=== PATIENT | female | born 1950 | race Caucasian/White ===

== ENCOUNTER 2016-10-20 11:33 | Outpatient (CLI) | payer MEDICARE, OTHER ==
[2016-10-20 11:56] LABS: Prothrombin Time 27.6 SEC (12.0-14.7)
== END 2016-10-20 11:34 | disposition home or self-care (01) ==
LOC: BURLAB 11:33
PROVIDERS: ATTEND Internal Medicine Cardiovascular Disease
DX: I48.1 Persistent atrial fibrillation (principal)
CPT/HCPCS: 36415; 85610

== ENCOUNTER 2016-12-09 16:10 | Outpatient (CLI) | payer OTHER ==
[2016-12-09 16:37] LABS: Prothrombin Time 29.8 SEC (12.0-14.7)
== END 2016-12-09 16:11 | disposition home or self-care (01) ==
LOC: BURLAB 16:10
PROVIDERS: ATTEND Internal Medicine Cardiovascular Disease
DX: I48.1 Persistent atrial fibrillation (principal)
CPT/HCPCS: 36415; 85610

== ENCOUNTER 2016-12-17 15:27 | Inpatient (IN) | payer OTHER, MEDICARE ==
[~2016-12-17 15:27] MED LIST: Iopamidol 370 76% 100 ML VIAL ONE
[2016-12-17] MEDS ORDERED: Loperamide HCl 2 MG CAP PO PRN (15:36)
[2016-12-17] MEDS ORDERED: Milk Of Magnesia 30 ML UDCUP PO PRN (15:36)
[2016-12-17] MEDS ORDERED: HYDROcodone/Acetaminophen 5/325 mg Tablet PO PRN (15:36)
[2016-12-17] MEDS ORDERED: Zolpidem Tartrate 5 MG TAB PO PRN (15:36)
[2016-12-17] MEDS ORDERED: Albuterol Sulfate 2.5 mg/3 ml Neb NEB PRN (15:36)
[2016-12-17] MEDS ORDERED: Acetaminophen 325 MG TAB PO PRN (15:36)
[2016-12-17] MEDS ORDERED: HYDROcodone/Acetaminophen 10/325 mg Tablet PO PRN (15:36)
[2016-12-17] MEDS ORDERED: Ondansetron ODT 4 MG TAB PO PRN (15:36)
[2016-12-17] MEDS ORDERED: Bisacodyl 10 MG SUPP PR PRN (15:36)
[2016-12-17] MEDS ORDERED: Guaifenesin DM 100-10/5 ML UDCUP PO PRN (15:36)
[2016-12-17] MEDS ORDERED: cefTRIAXone\\ROCEPHIN 2 GM in Sodium Chloride 0.9% 100 ML IVPB SCH (15:45)
[2016-12-17 16:19] VITALS: BMI 32.5
[2016-12-17 16:27] LABS: ALT (SGPT) 31 U/L (0-55); AST (SGOT) 32 U/L (5-34); Albumin 3.8 g/dL (3.4-4.8); Alkaline Phosphatase 110 U/L (40-150); Anion Gap 14 mmol/L (10-20); BUN (Urea Nitrogen) 12 mg/dL (9.8-20.1); Bilirubin, Total 0.2 mg/dL (0.2-1.2); Calc. Creatinine Clearance 82 mL/min (70-130); Calcium 9.5 mg/dL (7.8-10.44); Carbon Dioxide 30 mmol/L (23-31); Chloride 103 mmol/L (98-107); Estimated GFR-MDRD 52; Globulin 3.3 g/dL (2.4-3.5); Glucose 93 mg/dL (80-115); Potassium 3.7 mmol/L (3.5-5.1); Protein, Total 7.1 g/dL (5.8-8.1); Sodium 143 mmol/L (136-145)
--- NOTE | 2016-12-17 16:32 | RAD ---
CHEST TWO VIEWS: History: 66-year-old female with COPD exacerbation. Comparison: 05-12-16 FINDINGS: Heart size is within normal limits. The mid and upper lung zones are clear. On the lateral view th ere is some increased linear markings in the lung base region. It is difficult to be absolutely cer tain whether these are in the right or left base or both. They do appear somewhat more prominent th an on 05-12-16. No confluent pneumonia. IMPRESSION: Minimal linear stranding in the lung bases, best seen on the lateral view posteriorly and inferiorly , possibly some linear and parenchymal changes in either the right or left lower lobes or both. The se appear more prominent than on the 05-12-16 study and could suggest some mild pneumonitis or subsegm ental atelectasis. Consider short term follow up for clearing or stability. POS: [facility]
[2016-12-17 16:52] LABS: Hemoglobin 12.8 g/dL (12.0-16.0); Mean Corpuscular Hemoglobin 30.1 pg (27.0-31.0); Mean Corpuscular Volume 94.2 fl (81.0-99.0); Mean Platelet Volume 7.9 fL (7.4-10.4); Platelet Count 235 thou/uL (130-400); RBC Distribution Width 14.3 % (11.5-14.5); Red Blood Cell (RBC) Count 4.27 mill/uL (4.20-5.40); White Blood Cell (WBC) Count 45.2 thou/uL (4.8-10.8)
[2016-12-17] MEDS ORDERED: FLU VACC TS2016-17(65YR +) 0.5 ML SYRINGE IM ONE (17:00)
[2016-12-17 17:14] LABS: Eosinophils 83 % (0-10); Lymphocytes 4 % (21-51); MDiff Complete? YES; Monocytes 1 % (0-10); Neutrophil 11 % (42-75); PLT Morphology Comment Appears Adequate; RBC Morphology Normal
[2016-12-17 17:30] LABS: Digoxin 1.19 ng/mL (0.8-2.0)
[2016-12-17] MEDS ORDERED: Azithromycin 500 MG in Sodium Chloride 0.9% 250 ML 250 ML IVPB SCH (18:00)
[2016-12-17] MEDS ORDERED: Sodium Chloride 0.9% 10 ML ONE (18:25)
--- NOTE | 2016-12-17 19:31 | CT ---
CT CHEST WITH CONTRAST 12/17/16 HISTORY: Pneumonia. COMPARISON: Chest two view 12/17/16. FINDINGS: The heart size is enlarged. No pericardial effusions. Pulmonary trunk measures 32 mm, abnormally enl arged. Ascending aorta measures up 35 mm. There are a few small right paratracheal and subcarinal AP window lymph nodes without overt enlargem ent. There is atherosclerotic plaque with some narrowing of the celiac trunk and superior mesenteric belkys peg. There is superficial soft tissue edema concerning for anasarca, mild. There is a 3 mm right upper lobe pulmonary node. There is some atelectasis in the right middle lobe. There is also atelectasis in the left lower lobe. These areas are linear and not suspicious for con solidation. No pneumothorax or effusion. There are a few subpleural nodules in the right upper lobe, all measuri ng less than 4 mm. There is a cyst in the superior pole left kidney, unchanged from comparison examination. These are similar to the comparison, January 2016 CT examination. IMPRESSION: 1. Dilated pulmonary trunk suggestive of pulmonary arterial hypertension. 2. Mild soft tissue edema is concerning for anasarca. 3. Mild cardiomegaly. 4. Few shotty appearing lymph nodes, likely reactive. 5. Small sliding hiatal hernia. POS: [facility]
[2016-12-17 19:47] LABS: INR-International Normal Ratio 1.8; Prothrombin Time 21.2 SEC (12.0-14.7)
[2016-12-17 20:13] LABS: Bilirubin Negative (Negative); Blood, Urine Negative (Negative); Clarity Clear (Clear); Glucose, Urine (Dipstick) Negative (Negative); Leukocyte Negative (Negative); Nitrite Negative (Negative); Protein, Urine (Dipstick) Negative (Neg-Trace); Specific Gravity, Urine 1.025 (1.005-1.030); Urobilinogen 0.2 mg/dL (0.2-1.0)
[2016-12-17 20:24] LABS: Bacteria/HPF None Seen HPF (None Seen); RBC/HPF None Seen HPF (0-3); Squamous Epithelial 0-3 HPF (0-3); WBC/HPF None Seen HPF (0-3)
[2016-12-17] MEDS ORDERED: Warfarin Sodium 7.5 MG TAB PO SCH (20:30)
[2016-12-17] MEDS: Arformoterol 15 MCG/2 ML NEB NEB SCH (21:45)
[2016-12-18] MEDS: Arformoterol 15 MCG/2 ML NEB NEB SCH (06:43)
[2016-12-18 06:51] LABS: INR-International Normal Ratio 1.8; Prothrombin Time 21.2 SEC (12.0-14.7)
[2016-12-18 06:59] LABS: Anion Gap 12 mmol/L (10-20); BUN (Urea Nitrogen) 14 mg/dL (9.8-20.1); Calc. Creatinine Clearance 98 mL/min (70-130); Calcium 9.1 mg/dL (7.8-10.44); Carbon Dioxide 27 mmol/L (23-31); Chloride 106 mmol/L (98-107); Estimated GFR-MDRD 63; Glucose 165 mg/dL (80-115); Potassium 4.1 mmol/L (3.5-5.1); Sodium 141 mmol/L (136-145)
[2016-12-18 07:43] LABS: Hemoglobin 13.2 g/dL (12.0-16.0); Mean Corpuscular HGB CONC 32.9 g/dL (32.0-36.0); Mean Corpuscular Hemoglobin 30.5 pg (27.0-31.0); Mean Corpuscular Volume 92.8 fl (81.0-99.0); Mean Platelet Volume 7.8 fL (7.4-10.4); Platelet Count 211 thou/uL (130-400); RBC Distribution Width 13.5 % (11.5-14.5); Red Blood Cell (RBC) Count 4.31 mill/uL (4.20-5.40)
[2016-12-18 07:44] VITALS: BP 143/68; TEMP 97.8
[2016-12-18 07:57] LABS: Band 1 % (5-11); Eosinophils 50 % (0-10); Lymphocytes 15 % (21-51); MDiff Complete? YES; Neutrophil 34 % (42-75)
[2016-12-18] MEDS ORDERED: FLUoxetine HCl 10 MG CAP PO SCH (09:00)
[2016-12-18] MEDS ORDERED: Calcium Carbonate + Vit D 1 TAB PO SCH (09:00)
[2016-12-18] MEDS ORDERED: Digoxin 0.25 MG TAB PO SCH (09:00)
[2016-12-18] MEDS ORDERED: Digoxin 0.125 MG TAB PO SCH (09:00)
[2016-12-18] MEDS ORDERED: Fluticasone Propionate Nasal Spray 16 gm Bottle NASAL SCH (09:00)
[2016-12-18] MEDS ORDERED: Furosemide 40 MG TAB PO SCH (09:00)
[2016-12-18] MEDS ORDERED: Warfarin Sodium 7.5 MG TAB PO SCH (17:00)
--- NOTE | 2016-12-19 00:36 | DIS ---
DATE OF ADMISSION: 12/17/2016 DATE OF TRANSFER: 12/18/2016 ADMISSION DIAGNOSES: 1. Chronic obstructive pulmonary disease exacerbation. 2. Community-acquired pneumonia. 3. Obstructive sleep apnea. 4. History of endocardial ablation for chronic atrial fibrillation. DISCHARGE DIAGNOSES: 1. Chronic obstructive pulmonary disease exacerbation. 2. Pneumonia ruled out with CT scan. 3. Eosinophilic leukocytosis, suspicion of eosinophilic pneumonia. 4. Obstructive sleep apnea. 5. History of endocardial ablation for chronic atrial fibrillation. ATTENDING PHYSICIAN: Anne Denton DO. HISTORY AND PHYSICAL EXAMINATION: Please see dictated report from the date of admission. PROCEDURES: 1. CBC on the date of admission with white count of 45,200 with 83% eosinophils, 11% neutrophils, 4 % lymphocytes, 1% monocytes, 1% basophils, normal H\T\H, and platelets. CBC on the date of transfer after treatment with IV antibiotics and steroids, white count 27,000 with 50% eosinophils, 15% lymp hocytes, 34% neutrophils, normal H\T\H, and platelets. 2. Blood culture x2, urine culture x1, sputum culture x1 pending. 3. PT/INR date of admission 21.2 and 1.8. Subsequently today 21.2 and INR 1.8. 4. Chemistry profile from the date of admission completely normal. 5. Chemistry profile on the date of transfer with elevated glucose of 165, otherwise unremarkable. 6. Urinalysis on the date of admission significant for 15 ketones, otherwise negative. 7. Digoxin level date of admission 1.19. 8. Chest x-ray from the date of admission shows minimal linear stranding in the lung bases, best se en on the lateral view posteriorly and inferiorly, possibly some linear and parenchymal changes in e ither the right or left lower lobes or both. Appear more prominent on the 05/2016 study and could s uggest some mild pneumonitis or subsegmental atelectasis. 9. CT scan of the chest on the date of admission shows dilated pulmonary trunk suggestive of pulmon lilliana arterial hypertension. Mild soft tissue edema concerning for anasarca. Mild cardiomegaly. Few shotty appearing lymph nodes, likely reactive. Small sliding hiatal hernia. HOSPITAL COURSE: Patient is a 66-year-old female with a known history of obstructive slee p apnea on CPAP and compliant, who has had recurrent bouts of chronic sinusitis and COPD with wheezi ng. She is followed by Dr. Albert with ENT, status post endoscopic sinus surgery and with Dr. Noble brown of Pulmonology. Approximately 6 weeks prior to her admission here, patient was treated in the tpatient setting for sinusitis with cefdinir 300 mg p.o. b.i.d. x10 days. She was also treated with a 2-week taper of prednisone. Patient reports that upon completion, the patient's symptoms never r eally cleared and worsened to the point that she was having significant dyspnea on exertion yesterda y with O2 saturation down to 84%. She was placed on O2 and this probably corrected to 92%. Her aer ation and wheezing diminished with the administration of nebulizer treatments. She was admitted wit h suspected COPD exacerbation and covered with Rocephin and Zithromax due to the findings on the [facility] x-ray. She was given IV steroids for treatment of COPD exacerbation. After her CBC was signific ant for eosinophilic leukocytosis, I spoke with Hematology, Dr. Mckenna Hidalgo, who recommended a CT s can of the chest to look for nonbacterial etiology of her symptoms. CT of the chest was performed, which showed some atelectasis, but no findings suggestive of consolidation. I later reviewed this c hest CT with patient's pulmonary physician, Dr. Richter, who viewed the chest CT and felt that there were some areas within the chest that might be amenable to bronchoscopy with suspicion of eosinophi lic pneumonia. Dr. Richter recommended taking the patient off steroids in order to have a higher li kelihood of a diagnostic bronchoscopy. This will necessitate a transfer as the steroids are helping to improve the patient's leukocytosis and her symptoms. I have a call into the transfer center's h ospitalist group to accept this patient and transfer with Dr. Richetr to consult for possible bronch oscopy. Over the interval, the patient has been taken off IV steroids and IV antibiotics as current ly, there is no known bacterial infectious process. If the patient does in fact have an eosinophili c pneumonia, the plan would be to treat her with high dose steroids. Patient is stable and willing to transfer. Currently, her O2 saturations are 92% on 2 liters per minute, other vital signs are st able. Her lungs showed diminished air entry throughout with rare wheeze in all lung [place]. She is under no respiratory distress and is only mildly tachypneic. Transferred to higher level of care, [facility]ist Group with Dr Traci Richter consulting for Pulmonology. CONDITION: Stable. MEDICATIONS: We will continue the patient on the medication she was here, both chronically resumed from home and p.r.n. for symptoms. 1. Acetaminophen 650 mg p.o. q.4 hours p.r.n. mild pain. 2. Hydrocodone/acetaminophen 5/325 one p.o. q.4 hours p.r.n. moderate pain. 3. Hydrocodone/acetaminophen 10/325 one p.o. q.4 hours p.r.n. severe pain. 4. Albuterol nebulizer 2.5 mg nebulize q.2 hours p.r.n. shortness of breath. 5. DuoNeb 3 mL nebulizer q.6 hours 6. Brovana 15 mcg nebulize b.i.d. 7. Dulcolax 10 mg per rectum q.24 hours p.r.n. constipation. 8. Caltrate plus D 1 p.o. daily. 9. Digoxin 0.125 mg p.o. q.a.m. 10. Cardizem-CD 120 mg p.o. daily. 11. Prozac 10 mg p.o. daily. 12. Flonase 2 sprays in each nostril daily. 13. Lasix 40 mg p.o. daily. 14. Robitussin-DM 15 mL p.o. q.4 hours p.r.n. cough. 15. Imodium 2 mg p.o. p.r.n. constipation. 16. Milk of magnesia 30 mL p.o. daily p.r.n. 17. Zofran 4 mg p.o. q.6 hours p.r.n. nausea. 18. Protonix 40 mg p.o. daily. 19. Coumadin 7.5 mg p.o. daily. FOLLOWUP: With Dr. Anne Denton within 7 days of hospital discharge from [facility] and with her kidney puller as scheduled.
== END 2016-12-18 15:45 | disposition short-term general hospital (02) | DRG 191 ==
LOC: BURMED 15:27
PROVIDERS: ADMIT Family Medicine; ATTEND Family Medicine
DX: J44.1 Chronic obstructive pulmonary disease with (acute) exacerbation (principal); J82 Pulmonary eosinophilia, not elsewhere classified; I27.81 Cor pulmonale (chronic); I48.2 Chronic atrial fibrillation; J98.11 Atelectasis; G47.33 Obstructive sleep apnea (adult) (pediatric); J32.8 Other chronic sinusitis; K21.9 Gastro-esophageal reflux disease without esophagitis; F39 Unspecified mood [affective] disorder; J30.89 Other allergic rhinitis; J30.9 Allergic rhinitis, unspecified; Z79.01 Long term (current) use of anticoagulants; Z88.1 Allergy status to other antibiotic agents
CPT/HCPCS: 36415; 71020; 71260; 80048; 80053; 80162; 81001; 83605; 83880; 85025; 85060; 85610; 87040; 87086; A4216; J0456; J0696; J2920; J7050; J7620

== ENCOUNTER 2016-12-25 12:16 | Outpatient (CLI) | payer OTHER ==
[2016-12-25 12:45] LABS: Prothrombin Time 13.9 SEC (12.0-14.7)
[2016-12-25 13:07] LABS: Eosinophils 45 % (0-10); Lymphocytes 28 % (21-51); MDiff Complete? YES; Mean Corpuscular HGB CONC 31.8 g/dL (32.0-36.0); Mean Corpuscular Hemoglobin 29.5 pg (27.0-31.0); Mean Corpuscular Volume 92.6 fl (81.0-99.0); Mean Platelet Volume 8.7 fL (7.4-10.4); Monocytes 11 % (0-10); Neutrophil 16 % (42-75); Platelet Count 226 thou/uL (130-400); RBC Distribution Width 13.8 % (11.5-14.5); Red Blood Cell (RBC) Count 4.39 mill/uL (4.20-5.40); White Blood Cell (WBC) Count 8.9 thou/uL (4.8-10.8)
== END 2016-12-25 12:17 | disposition home or self-care (01) ==
LOC: BURLAB 12:16
PROVIDERS: ATTEND Internal Medicine
DX: J44.9 Chronic obstructive pulmonary disease, unspecified (principal); J96.01 Acute respiratory failure with hypoxia; D72.1 Eosinophilia
CPT/HCPCS: 36415; 85025; 85610

== ENCOUNTER 2017-01-12 09:46 | Outpatient (CLI) | payer OTHER ==
[2017-01-12 11:02] LABS: #Basophils 0.1 thou/uL (0.0-0.2); #Lymphocytes 1.2 thou/uL (1.20-3.40); #Monocytes 0.4 thou/uL (0.11-0.59); #Neutrophils 8.6 thou/uL (1.40-6.50); %Basophils 0.6 % (0.0-1.0); %Eosinophils 0.3 % (0.0-10.0); %Lymphocytes 11.6 % (21.0-51.0); %Monocytes 3.9 % (0.0-10.0); %Neutrophils 83.6 % (42.0-75.0); Hemoglobin 13.7 g/dL (12.0-16.0); Mean Corpuscular HGB CONC 32.2 g/dL (32.0-36.0); Mean Corpuscular Hemoglobin 30.5 pg (27.0-31.0); Mean Corpuscular Volume 94.7 fl (81.0-99.0); Platelet Count 285 thou/uL (130-400); RBC Distribution Width 13.6 % (11.5-14.5); White Blood Cell (WBC) Count 10.3 thou/uL (4.8-10.8)
[2017-01-12 11:23] LABS: Digoxin 1.11 ng/mL (0.8-2.0)
[2017-01-12 11:24] LABS: Anion Gap 16 mmol/L (10-20); BUN (Urea Nitrogen) 19 mg/dL (9.8-20.1); Calc. Creatinine Clearance 0 mL/min (70-130); Calcium 9.5 mg/dL (7.8-10.44); Carbon Dioxide 28 mmol/L (23-31); Chloride 101 mmol/L (98-107); Estimated GFR-MDRD 54; Glucose 120 mg/dL (80-115); Potassium 3.9 mmol/L (3.5-5.1); Sodium 141 mmol/L (136-145)
== END 2017-01-12 09:47 | disposition home or self-care (01) ==
LOC: HPCALD 09:46
PROVIDERS: ATTEND Family Medicine
DX: Z51.81 Encounter for therapeutic drug level monitoring (principal); D72.1 Eosinophilia; I48.91 Unspecified atrial fibrillation; Z79.899 Other long term (current) drug therapy
CPT/HCPCS: 36415; 80048; 80162; 85025

== ENCOUNTER 2017-02-09 11:01 | Outpatient (CLI) | payer OTHER ==
[2017-02-09 11:58] LABS: #Eosinphils 0.1 thou/uL (0.0-0.7); #Lymphocytes 0.7 thou/uL (1.20-3.40); #Monocytes 0.3 thou/uL (0.11-0.59); %Basophils 0.5 % (0.0-1.0); %Eosinophils 0.5 % (0.0-10.0); %Monocytes 3.2 % (0.0-10.0); %Neutrophils 87.8 % (42.0-75.0); Hemoglobin 13.4 g/dL (12.0-16.0); Mean Corpuscular Hemoglobin 30.5 pg (27.0-31.0); Mean Corpuscular Volume 92.6 fl (81.0-99.0); Mean Platelet Volume 8.6 fL (7.4-10.4); Platelet Count 232 thou/uL (130-400); RBC Distribution Width 14.1 % (11.5-14.5); Red Blood Cell (RBC) Count 4.38 mill/uL (4.20-5.40); White Blood Cell (WBC) Count 9.1 thou/uL (4.8-10.8)
== END 2017-02-09 11:02 ==
LOC: HPCALD 11:01
PROVIDERS: ATTEND Family Medicine
DX: D72.1 Eosinophilia (principal)
CPT/HCPCS: 36415; 85025

== ENCOUNTER 2017-02-27 11:46 | Outpatient (CLI) | payer OTHER ==
[2017-02-27 12:12] LABS: Prothrombin Time 43.9 SEC (12.0-14.7)
[2017-02-27 12:14] LABS: INR-International Normal Ratio 4.3
== END 2017-02-27 11:47 | disposition home or self-care (01) ==
LOC: BURLAB 11:46
PROVIDERS: ATTEND Internal Medicine Cardiovascular Disease
DX: I48.1 Persistent atrial fibrillation (principal)
CPT/HCPCS: 36415; 85610

== ENCOUNTER 2017-03-06 13:58 | Outpatient (CLI) | payer OTHER ==
[2017-03-06 14:41] LABS: Digoxin 1.02 ng/mL (0.8-2.0)
== END 2017-03-06 13:59 | disposition home or self-care (01) ==
LOC: BURLAB 13:58
PROVIDERS: ATTEND Family Medicine
DX: I48.91 Unspecified atrial fibrillation (principal)
CPT/HCPCS: 36415; 80162

== ENCOUNTER 2017-03-13 12:42 | Outpatient (CLI) | payer OTHER ==
[2017-03-13 12:55] LABS: INR-International Normal Ratio 0.9; Prothrombin Time 12.5 SEC (12.0-14.7)
== END 2017-03-13 12:43 | disposition home or self-care (01) ==
LOC: BURLAB 12:42
PROVIDERS: ATTEND Internal Medicine Cardiovascular Disease
DX: I48.1 Persistent atrial fibrillation (principal)
CPT/HCPCS: 36415; 85610

== ENCOUNTER 2017-03-27 10:32 | Outpatient (CLI) | payer OTHER ==
[2017-03-27 10:49] LABS: INR-International Normal Ratio 1.5; Prothrombin Time 18.6 SEC (12.0-14.7)
== END 2017-03-27 10:33 | disposition home or self-care (01) ==
LOC: BURLAB 10:32
PROVIDERS: ATTEND Internal Medicine Cardiovascular Disease
DX: I48.0 Paroxysmal atrial fibrillation (principal)
CPT/HCPCS: 36415; 85610

== ENCOUNTER 2017-04-06 10:28 | Outpatient (CLI) | payer OTHER ==
[2017-04-06 10:45] LABS: INR-International Normal Ratio 1.4; Prothrombin Time 17.6 SEC (12.0-14.7)
== END 2017-04-06 10:29 | disposition home or self-care (01) ==
LOC: BURLAB 10:28
PROVIDERS: ATTEND Internal Medicine Cardiovascular Disease
DX: I48.0 Paroxysmal atrial fibrillation (principal)
CPT/HCPCS: 36415; 85610

== ENCOUNTER 2017-04-06 11:04 | Emergency (ER) | payer OTHER ==
[2017-04-06] MEDS ORDERED: Enoxaparin Sodium 100 MG/ML SYRINGE ONE (11:43)
[2017-04-06 11:53] LABS: #Basophils 0.1 thou/uL (0.0-0.2); #Lymphocytes 0.7 thou/uL (1.20-3.40); #Monocytes 0.2 thou/uL (0.11-0.59); #Neutrophils 10.9 thou/uL (1.40-6.50); %Basophils 0.7 % (0.0-1.0); %Eosinophils 0.1 % (0.0-10.0); %Lymphocytes 6.2 % (21.0-51.0); %Monocytes 1.9 % (0.0-10.0); %Neutrophils 91.1 % (42.0-75.0); Hemoglobin 13.3 g/dL (12.0-16.0); Mean Corpuscular HGB CONC 32.3 g/dL (32.0-36.0); Mean Corpuscular Hemoglobin 30.1 pg (27.0-31.0); Mean Corpuscular Volume 93.1 fl (81.0-99.0); Mean Platelet Volume 8.3 fL (7.4-10.4); Platelet Count 264 thou/uL (130-400); RBC Distribution Width 14.3 % (11.5-14.5); Red Blood Cell (RBC) Count 4.43 mill/uL (4.20-5.40); White Blood Cell (WBC) Count 11.9 thou/uL (4.8-10.8)
[2017-04-06 11:58] LABS: INR-International Normal Ratio 1.5; Prothrombin Time 18.2 SEC (12.0-14.7)
[2017-04-06 11:59] LABS: PTT 28.7 SEC (22.9-36.1)
[2017-04-06 12:04] LABS: ALT (SGPT) 26 U/L (8-55); AST (SGOT) 21 U/L (5-34); Alkaline Phosphatase 80 U/L (40-150); Anion Gap 16 mmol/L (10-20); BUN (Urea Nitrogen) 19 mg/dL (9.8-20.1); Bilirubin, Total 0.4 mg/dL (0.2-1.2); Calc. Creatinine Clearance 0 mL/min (70-130); Calcium 9.4 mg/dL (7.8-10.44); Carbon Dioxide 26 mmol/L (23-31); Chloride 102 mmol/L (98-107); Digoxin Less than 0.15 ng/mL (0.8-2.0); Estimated GFR-MDRD 49; Globulin 2.6 g/dL (2.4-3.5); Glucose 169 mg/dL (80-115); Potassium 4.1 mmol/L (3.5-5.1); Protein, Total 6.6 g/dL (6.0-8.3); Sodium 140 mmol/L (136-145)
[2017-04-06 12:08] LABS: CKMB 1.4 ng/mL (0-6.6); Troponin I 0.018 ng/mL (< 0.028)
--- NOTE | 2017-04-06 23:35 | RAD ---
PORTABLE CHEST 04/06/17 An AP portable film at 1152 is compared with a 12/17/16 study. Minimal cardiomegaly seems no different than before. There is no congestive change or pleural effusi on. While part of the haziness over the lung bases is due to overlap from the patient's breast tissu e, some of it is a little more streaky and looks similar to the prior study. I suspect that it is ba silar scarring more so than any acute infiltrate. The upper lobes are clear. IMPRESSION: 1. Cardiomegaly without congestive findings. 2. Minimal basilar streakiness which may be due to basilar scarring. POS: HOME
== END 2017-04-06 12:56 | disposition short-term general hospital (02) ==
LOC: BURERS 11:04
DX: I48.91 Unspecified atrial fibrillation (principal); J44.9 Chronic obstructive pulmonary disease, unspecified; Z79.01 Long term (current) use of anticoagulants; Z79.899 Other long term (current) drug therapy; Z87.891 Personal history of nicotine dependence
CPT/HCPCS: 71010; 80053; 80162; 82553; 83880; 84484; 85025; 85730; 93005; 94760; 96365; 96372; 96376; J1650; J3490

== ENCOUNTER 2017-04-13 09:20 | Outpatient (CLI) | payer OTHER ==
[2017-04-13 09:49] LABS: INR-International Normal Ratio 1.6; Prothrombin Time 19.8 SEC (12.0-14.7)
== END 2017-04-13 09:21 | disposition home or self-care (01) ==
LOC: BURLAB 09:20
PROVIDERS: ATTEND Internal Medicine Cardiovascular Disease
DX: I48.0 Paroxysmal atrial fibrillation (principal)
CPT/HCPCS: 36415; 85610

== ENCOUNTER 2017-04-22 15:27 | Outpatient (CLI) | payer OTHER | END 2017-04-22 15:28 | disposition home or self-care (01) | LOC: BURLAB 15:27 | PROVIDERS: ATTEND Internal Medicine Cardiovascular Disease | DX: I48.0 Paroxysmal atrial fibrillation (principal) | CPT/HCPCS: 36415; 85610 ==

== ENCOUNTER 2017-05-07 15:41 | Outpatient (CLI) | payer OTHER ==
[2017-05-07 15:59] LABS: INR-International Normal Ratio 2.3
== END 2017-05-07 15:42 | disposition home or self-care (01) ==
LOC: BURLAB 15:41
PROVIDERS: ATTEND Internal Medicine Cardiovascular Disease
DX: I48.0 Paroxysmal atrial fibrillation (principal)
CPT/HCPCS: 36415; 85610

== ENCOUNTER 2017-05-26 09:42 | Outpatient (CLI) | payer OTHER ==
[2017-05-26 10:29] LABS: INR-International Normal Ratio 2.1; Prothrombin Time 24.6 SEC (12.0-14.7)
== END 2017-05-26 09:43 | disposition home or self-care (01) ==
LOC: BURLAB 09:42
PROVIDERS: ATTEND Internal Medicine Cardiovascular Disease
DX: I48.0 Paroxysmal atrial fibrillation (principal)
CPT/HCPCS: 36415; 85610

== ENCOUNTER 2017-05-27 15:55 | Outpatient (CLI) | payer OTHER ==
[2017-05-27 16:47] LABS: Anion Gap 12 mmol/L (10-20); BUN (Urea Nitrogen) 14 mg/dL (9.8-20.1); Calc. Creatinine Clearance 0 mL/min (70-130); Carbon Dioxide 29 mmol/L (23-31); Chloride 103 mmol/L (98-107); Estimated GFR-MDRD 58; Glucose 99 mg/dL (80-115); Magnesium 2.2 mg/dL (1.6-2.6); Potassium 3.4 mmol/L (3.5-5.1); Sodium 141 mmol/L (136-145)
[2017-05-27 17:27] LABS: #Basophils 0.1 thou/uL (0.0-0.2); #Eosinphils 0.2 thou/uL (0.0-0.7); #Lymphocytes 1.9 thou/uL (1.20-3.40); #Monocytes 0.7 thou/uL (0.11-0.59); #Neutrophils 6.1 thou/uL (1.40-6.50); %Basophils 1.1 % (0.0-1.0); %Eosinophils 2.5 % (0.0-10.0); %Lymphocytes 21.3 % (21.0-51.0); %Monocytes 7.6 % (0.0-10.0); %Neutrophils 67.5 % (42.0-75.0); Hemoglobin 12.1 g/dL (12.0-16.0); Mean Corpuscular HGB CONC 32.1 g/dL (32.0-36.0); Mean Corpuscular Hemoglobin 30.9 pg (27.0-31.0); Mean Corpuscular Volume 96.2 fl (81.0-99.0); Mean Platelet Volume 8.5 fL (7.4-10.4); Platelet Count 246 thou/uL (130-400); RBC Distribution Width 14.3 % (11.5-14.5); Red Blood Cell (RBC) Count 3.92 mill/uL (4.20-5.40); White Blood Cell (WBC) Count 9.1 thou/uL (4.8-10.8)
== END 2017-05-27 15:56 | disposition home or self-care (01) ==
LOC: BURLAB 15:55
PROVIDERS: ATTEND Internal Medicine
DX: J45.909 Unspecified asthma, uncomplicated (principal); D72.1 Eosinophilia
CPT/HCPCS: 80048; 82785; 83735; 85025; 88184

== ENCOUNTER 2017-06-23 11:34 | Outpatient (CLI) | payer OTHER ==
[2017-06-23 12:29] LABS: INR-International Normal Ratio 1.2; Prothrombin Time 15.5 SEC (12.0-14.7)
== END 2017-06-23 11:35 | disposition home or self-care (01) ==
LOC: BURLAB 11:34
PROVIDERS: ATTEND Internal Medicine Cardiovascular Disease
DX: I48.0 Paroxysmal atrial fibrillation (principal)
CPT/HCPCS: 36415; 85610

== ENCOUNTER 2018-07-19 12:15 | Emergency (ER) | payer MEDICARE, BC | END 2018-07-19 12:37 | disposition home or self-care (01) | LOC: BURERS 12:15 | DX: S01.01XA Laceration without foreign body of scalp, initial encounter (principal); I48.91 Unspecified atrial fibrillation; J45.909 Unspecified asthma, uncomplicated; Z87.891 Personal history of nicotine dependence; Z79.899 Other long term (current) drug therapy; Z79.82 Long term (current) use of aspirin; W18.09XA Striking against other object with subsequent fall, initial encounter | CPT/HCPCS: 12002 ==

== ENCOUNTER 2019-05-27 14:13 | Inpatient (IN) | payer MEDICARE, BC ==
[2019-05-27 16:50] VITALS: BMI 34.0
[2019-05-27] MEDS ORDERED: Ventolin HFA Inhaler 60 PUFF INHALER INH PRN (17:05)
[2019-05-27] MEDS ORDERED: hydrOXYzine 25 MG TAB PO PRN (17:29)
[2019-05-27] MEDS ORDERED: Polyethylene Glycol 3350 17 GM Packet PO PRN (17:31)
[2019-05-27] MEDS ORDERED: Senokot 8.6 MG TAB PO PRN (17:31)
[2019-05-27] MEDS ORDERED: Ondansetron ODT 4 MG TAB PO PRN (17:31)
[2019-05-27] MEDS ORDERED: HYDROcodone/Acetaminophen 10/325 mg Tablet PO PRN ×2 (17:48→22:40)
[2019-05-27] MEDS: Mometasone/Formoterol 60 PUFF AER INH SCH (19:59)
[2019-05-27] MEDS: Aspirin 81 mg Enteric Coated Tablet PO SCH (20:01)
[2019-05-27] MEDS ORDERED: SODIUM CHLORIDE EA NARE PRN (21:00)
[2019-05-27] MEDS ORDERED: SODIUM BICARB EA NARE PRN (21:00)
[2019-05-27] MEDS ORDERED: Ibuprofen 800 MG TAB PO PRN (22:41)
--- NOTE | 2019-05-28 01:16 | HP ---
CHIEF COMPLAINT: Intractable pain, status post right total knee replacement. HISTORY OF PRESENT ILLNESS: This is a 68-year-old female status post right total knee replacement via Dr. Rodriguez on 05/23/2019, who presented to the [facility] earlier today with complaints of intractable pain, limited mobility, and dyspnea with activity. The patient has been taking [place] 10 q.6-8 hours as needed thus far. She has greatly struggled with her mobilities with particular limited range of motion of her right lower extremity. She has had use of a walker to aid in ambulation. However, as noted, becomes notably fatigued with attempted mobility. She denies having fever, chills, diaphoresis, nausea, vomiting, or diarrhea. She does report to have poor appetite and bowel movements have been regular thus far. Due to her uncontrolled pain and limited mobility, it has been decided to admit the patient, so that she may have improved pain control and work with Physical Therapy and Occupational Therapy; the patient is agreeable to this plan of care. PAST MEDICAL HISTORY: Includes anxiety, depression, diverticulosis, chronic sinusitis, chronic atrial fibrillation status post ablation x2, asthma, and sleep apnea. PAST SURGICAL HISTORY: Sinus surgery in 2010, in 1979, bilateral endoscopic sinus surgery with total ethmoidectomy, maxillary antrostomies, sphenoidotomies with left frontal sinusotomy, endocardial ablation and cardiac ablation, bilateral cataract repair, Watchman implanted via Dr. Goddard on 12/11/2017, right total knee replacement 05/23/2019. SOCIAL HISTORY: Denies EtOH or illicit drug use or smoking. FAMILY HISTORY: Noncontributory. ALLERGIES: INCLUDE AMOXICILLIN WHICH CAUSES DIARRHEA AND CAUSES HEADACHE. CURRENT MEDICATIONS: 1. Furosemide 40 mg daily. 2. Cardizem CD 120 mg daily. 3. Singulair 10 mg at bedtime. 4. Aspirin 81 mg b.i.d. 5. Azelastine nasal spray each morning. 6. Calcium carbonate plus vitamin D daily. 7. Prozac 10 mg daily. 8. Flonase daily. 9. DuoNeb 3 mL q.4 hours p.r.n. 10. Breo Ellipta 100 mcg/25 mcg powder daily. 11. Daily multivitamin. 12. Protonix 40 mg daily. 13. Ventolin inhaler one puff q.6 hours p.r.n. REVIEW OF SYSTEMS: GENERAL: Denies fever, chills, or diaphoresis. EARS, NOSE, AND THROAT: Denies sore throat, nasal drainage, or congestion. CARDIOVASCULAR: Denies chest pain or palpitations. RESPIRATORY: Complains of shortness of breath with activity. GASTRO: Denies abdominal pain, nausea, vomiting, diarrhea, or constipation. GENITOURINARY: Denies dysuria. MUSCULOSKELETAL: Complains of joint pain and swelling to the right knee. DERM: Denies rash. NEURO: Denies headache. LABORATORY DATA: None pending. PHYSICAL EXAMINATION: VITAL SIGNS: Temperature is 98.0, pulse is 78, respiratory rate is 22, oxygen is 95% on room air, and blood pressure is 133/58. GENERAL: The patient is alert and oriented, uncomfortable. HEAD, EYES, EARS, NOSE, AND THROAT: Normocephalic, atraumatic. Pupils are equal, round, and reactive to light. Extraocular muscles are intact bilaterally. Oropharynx is clear with moist mucous membranes. NECK: Supple with no lymphadenopathy. CARDIOVASCULAR: Regular rate and rhythm. No murmurs, rubs, or gallops. RESPIRATORY: Clear to auscultation bilaterally without wheezes, rales, or rhonchi. GASTROINTESTINAL: Nondistended, soft with normal bowel sounds. EXTREMITIES: There is swelling and superficial warmth to the right knee with ecchymosis extending distally. She has clean, dry, and intact postoperative incisions. Very limited range of motion of the right knee secondary to pain. She is neurovascularly intact distally. SKIN: No rashes. NEUROLOGIC: Nonfocal with cranial nerves 2 through 12 grossly intact. ASSESSMENT AND PLAN: 1. Status post total right knee replacement with intractable pain. The patient will be provided with IV morphine 2 mg q.8 hours scheduled at this time with resumption of [place] for breakthrough pain. The patient is to follow up with Dr. Rodriguez next Thursday on June 01, 2019. Order physical therapy and occupational therapy. We will provide Zofran for p.r.n. nausea, and p.r.n. MiraLAX and Senokot for potential GI complications related to taking pain medication. 2. Asthma. The patient is stable on room air. We will resume her usual respiratory medications. 3. Chronic atrial fibrillation. The patient is rate controlled. We will resume diltiazem. 4. Anxiety with depression. We will resume the patient's fluoxetine. She does report to be more anxious, thus I will add p.r.n. hydroxyzine. 5. Obstructive sleep apnea. We will encourage the patient to use her home CPAP. 6. Prophylaxis. The patient is on PPI for GI prophylaxis and aspirin b.i.d. as per protocol status post knee replacement. DISPOSITION: We will plan to transition the patient from acute inpatient status to swing bed status at the appropriate time. CODE STATUS: Full. Job ID: [id number]
[2019-05-28] MEDS ORDERED: Furosemide 40 MG TAB PO SCH (09:00)
[2019-05-28] MEDS ORDERED: Azelastine 137 MCG/Spray 30 ML NS SCH (09:00)
[2019-05-28] MEDS ORDERED: Montelukast Sodium 10 mg Tablet PO SCH (09:00)
[2019-05-28] MEDS ORDERED: [UNRECOGNIZED DRUG - OTHER] PO SCH (09:00)
[2019-05-28] MEDS ORDERED: Calcium Carbonate + Vit D 1 TAB PO SCH (09:00)
[2019-05-28] MEDS ORDERED: Multivit, Therapeutic 1 TAB PO SCH (09:00)
[2019-05-28] MEDS ORDERED: Fluticasone Propionate Nasal Spray 16 gm Bottle NASAL SCH (09:00)
[2019-05-28] MEDS ORDERED: FLUoxetine HCl 10 MG CAP PO SCH (09:00)
[2019-05-28] MEDS: Aspirin 81 mg Enteric Coated Tablet PO SCH (09:09)
[2019-05-28] MEDS: Mometasone/Formoterol 60 PUFF AER INH SCH (09:09)
[2019-05-28 10:40] VITALS: BP 123/58; TEMP 98.6
--- NOTE | 2019-05-28 17:28 | DIS ---
DATE OF ADMISSION: 05/27/2019 DATE OF DISCHARGE: 05/28/2019 PRIMARY CARE PHYSICIAN: Dr. Denton. FINAL DIAGNOSES: 1. Right knee intractable pain, status post right knee replacement. 2. Gait instability. 3. Chronic atrial fibrillation, status post ablation x3 and Watchman procedure. 4. Chronic lung disease secondary to asthma and multiple lung infections. 5. Gastroesophageal reflux disease. 6. Obesity. HISTORY OF PRESENT ILLNESS/COURSE IN THE [place]: Ms. Wong is a 68-year-old white female with chronic atrial fibrillation, status post ablation x3 and Watchman procedure, chronic lung disease secondary to asthma and multiple lung infections and bilateral knee degenerative joint disease, underwent elective right knee replacement on May [address] Rodriguez. She did fine intraoperatively and postoperatively. She went home on 05/25/2019, but developed increasing right knee pain with decreased mobility and dyspnea on exertion. She was not able to take care of herself, who is 80 years old has multiple other comorbid condition and was not able to assist her. She was admitted yesterday for control of pain, and assistance with mobility. She was evaluated by Physical therapy and noted gait abnormality, decreased balance, endurance, strength, and functional ability, recommendation was to continue physical and occupational therapy prior to transitioning to home. Upon evaluation this morning, she walked about feet using rolling walker with standby assist. MEDICATIONS: 1. Aspirin 81 mg b.i.d. 2. Calcium carbonate one tablet q.a.m. 3. Diltiazem 120 mg daily. 4. Prozac 10 mg daily. 5. Flonase 1 nasal spray per nostril b.i.d. 6. Lasix 40 mg q.a.m. 7. Eunice every 6 hours p.r.n. for moderate pain. 8. Atarax 25 mg b.i.d. 9. Ibuprofen 800 mg q.8 hours p.r.n. for pain. 10. DuoNeb one neb every 6 hours schedule. 11. Dulera 100 mcg/5 mcg two puffs b.i.d. 12. Singulair 10 mg daily. 13. Zofran 4 mg every 6 hours p.r.n. for nausea and vomiting. 14. Pantoprazole 40 mg daily. 15. Ventolin inhaler two puffs q.4 hours p.r.n. for cough and wheezing. 16. MiraLAX 17 g daily p.r.n. for constipation. 17. Docusate one tab daily p.r.n. for constipation. DISPOSITION: Transfer to inpatient rehab for physical and occupational therapy, status post right knee replacement. DIET: Heart healthy. ACTIVITY: Ad emely with physical therapy recommendation. Job ID: [id number]
== END 2019-05-28 11:13 | DRG 561 ==
LOC: BURMED 14:13
PROVIDERS: ADMIT Family Medicine; ATTEND Family Medicine
DX: Z47.1 Aftercare following joint replacement surgery (principal); F41.9 Anxiety disorder, unspecified; F32.9 Major depressive disorder, single episode, unspecified; J45.909 Unspecified asthma, uncomplicated; I48.2 Chronic atrial fibrillation; G47.33 Obstructive sleep apnea (adult) (pediatric); K21.9 Gastro-esophageal reflux disease without esophagitis; E66.9 Obesity, unspecified; R26.81 Unsteadiness on feet; Z79.899 Other long term (current) drug therapy; Z88.1 Allergy status to other antibiotic agents; Z79.82 Long term (current) use of aspirin; Z98.890 Other specified postprocedural states; Z68.34 Body mass index [BMI] 34.0-34.9, adult
CPT/HCPCS: 94664; J2270; J7620

== ENCOUNTER 2019-05-28 11:20 | Inpatient (IN) | payer MEDICARE, BC ==
[2019-05-28] MEDS ORDERED: Ventolin HFA Inhaler 60 PUFF INHALER INH PRN (11:38)
[2019-05-28] MEDS ORDERED: hydrOXYzine 25 MG TAB PO PRN (11:44)
[2019-05-28] MEDS ORDERED: Ondansetron ODT 4 MG TAB PO PRN (11:47)
[2019-05-28] MEDS ORDERED: Senokot S 8.6-50 MG TAB PO PRN (11:48)
[2019-05-28] MEDS ORDERED: Polyethylene Glycol 3350 17 GM Packet PO PRN (11:48)
[2019-05-28] MEDS: Ibuprofen 800 MG TAB PO PRN (13:50)
[2019-05-28] MEDS: HYDROcodone/Acetaminophen 10/325 mg Tablet PO PRN ×2 (15:06→21:44)
[2019-05-28 15:35] VITALS: BMI 34.0
--- NOTE | 2019-05-28 17:14 | HP ---
PRIMARY CARE PHYSICIAN: Dr. Denton. CHIEF COMPLAINT: Admission for inpatient rehab with physical and occupational therapy, status post right knee replacement. HISTORY OF PRESENT ILLNESS: Ms. Wong is a 68-year-old female with chronic atrial fibrillation, status post ablation x3 and Watchman procedure, chronic lung disease secondary to asthma and multiple lung infections, and bilateral degenerative knee joint disease, underwent elective right knee replacement on May 23, [address] Rodriguez. She did fine intra and postoperatively. She went home on 05/25/2019; however, developed increasing right knee pain with decreased mobility and dyspnea on exertion. She was admitted yesterday for parenteral pain medications and assistance with ambulation. She was evaluated by Physical Therapy and noted she has significant gait abnormality, decreased balance, endurance, strength, and functional ability, and recommendation was to continue physical and occupational therapy prior to transitioning back home. Upon evaluation this morning, she walked about 85 feet using rolling walker with standby assistance. PAST MEDICAL HISTORY: 1. Chronic atrial fibrillation, status post ablation with Watchman procedure. 2. Chronic lung disease secondary to asthma and multiple infections. 3. Obstructive sleep apnea. 4. Depression. 5. Anxiety. 6. Diverticulosis. PAST SURGICAL HISTORY: 1. Cataract surgery. 2. Sinus surgery. 3. . 4. Bilateral endoscopic sinus surgery with total ethmoidectomy. 5. Maxillary antrostomies. 6. Endocardial ablation. 7. Watchman implanted on December 11, 2017. 8. Right total knee replacement on 05/23/2019. SOCIAL HISTORY: Former smoker, quit more than 10 years ago. Denies alcohol or drug use. FAMILY HISTORY: Noncontributory. ALLERGIES: AMOXICILLIN CAUSING DIARRHEA AND SEVERE HEADACHES. CURRENT MEDICATIONS: 1. Aspirin 81 mg b.i.d. 2. Calcium carbonate one tablet daily. 3. Cardizem 120 mg daily. 4. Prozac 10 mg daily. 5. Flonase 1 nasal inhalation b.i.d. 6. Lasix 40 mg q.a.m. 7. every 6 hours p.r.n. for moderate pain. 8. Hydroxyzine 25 mg b.i.d. p.r.n. for anxiety. 9. Ibuprofen 800 mg every 8 hours p.r.n. for pain. 10. DuoNeb every 6 hours. 11. Dulera 100/5 mcg inhaler two puffs b.i.d. 12. Singulair 10 mg daily. 13. Multivitamins one tablet daily. 14. Zofran 4 mg every 6 hours p.r.n. for nausea and vomiting. 15. Protonix 40 mg daily. 16. MiraLAX 17 g daily p.r.n. for constipation. 17. Senokot-S one tablet daily p.r.n. for constipation. 18. Ventolin inhaler two puffs every 4 hours p.r.n. for cough and wheezing. REVIEW OF SYSTEMS: GENERAL: No fever. No chills. No decreased appetite. EAR, NOSE, THROAT: Negative for sore throat, nasal congestion. CARDIOVASCULAR: Denies chest pain. No edema. RESPIRATORY: Positive for chronic cough, wheezing, and chest congestion. GASTRO: Negative for nausea or vomiting or diarrhea. GENITOURINARY: Negative for hematuria or dysuria. MUSCULOSKELETAL: Positive for increasing pain from right knee surgery. Decreased range of motion of the right knee. Poor balance. DERM: Negative for rash or lesions. NEUROLOGIC: Negative for headaches. Negative for seizures. PHYSICAL EXAMINATION: VITAL SIGNS: Blood pressure 128/58, temperature of 98.6, pulse of 75, respirations of 20, O2 saturations 96% on room air. GENERAL: The patient is alert, oriented, not in respiratory distress. HEENT: Normocephalic and atraumatic. Pupils equal, reactive to light. NECK: Supple. Negative for lymphadenopathy. CHEST AND LUNGS: Symmetrical expansion. Clear to auscultation. HEART: Regular rate and rhythm. Negative for murmur. ABDOMEN: Flat, soft, nontender. EXTREMITIES: Positive for swelling and tenderness on the right knee. Positive for ecchymosis on the anterior lower leg. Incision is clean, dry, intact. Decreased range of motion of the right knee secondary to pain. Pedal pulses are symmetrical. NEUROLOGIC: Nonfocal. Cranial nerves 2 through 12 intact. PSYCH: Appropriate affect and demeanor. ASSESSMENT: 1. Bilateral knee degenerative joint disease, status post right knee replacement, postop day #5. 2. Gait instability. 3. Chronic atrial fibrillation, status post ablation and Watchman procedure. 4. Chronic lung disease secondary to asthma and multiple infections. 5. Gastroesophageal reflux disease. 6. Obesity. 7. Allergies. 8. General anxiety and depression. PLAN: The patient will be admitted for skilled with physical and occupational therapy. Prognosis for significant improvement with reasonable time appears good. We will monitor for infection, bleeding, and monitor pain management and side effects of current medications. She will participate with physical therapy to address strength, range of motion, transfer training, gait transfer, and family training and safety training with progression to home exercises. She will participate with occupational therapy to address ADLs. We will reconcile hospital medication and adjust dosages prior to her discharge. manager process to address how the patient can be discharged safely in a timely manner. Anticipate discharge to home in the next couple of weeks. Transfer of care to PCP on Thursday. Job ID: [id number]
[2019-05-28] MEDS: Mometasone/Formoterol 60 PUFF AER INH SCH (19:20)
[2019-05-28] MEDS: Montelukast Sodium 10 mg Tablet PO SCH (21:44)
[2019-05-28] MEDS: Aspirin 81 mg Enteric Coated Tablet PO SCH (21:44)
[2019-05-29] MEDS: HYDROcodone/Acetaminophen 10/325 mg Tablet PO PRN ×3 (06:00→21:26)
[2019-05-29] MEDS: Mometasone/Formoterol 60 PUFF AER INH SCH ×2 (06:05→17:11)
[2019-05-29] MEDS: Ibuprofen 800 MG TAB PO PRN ×3 (06:43→21:26)
[2019-05-29] MEDS: Aspirin 81 mg Enteric Coated Tablet PO SCH ×2 (08:41→21:26)
[2019-05-29] MEDS: Multivit, Therapeutic 1 TAB PO SCH (08:41)
[2019-05-29] MEDS: Calcium Carbonate + Vit D 1 TAB PO SCH (08:41)
[2019-05-29] MEDS: FLUoxetine HCl 10 MG CAP PO SCH (08:42)
[2019-05-29] MEDS: Furosemide 40 MG TAB PO SCH (08:42)
[2019-05-29] MEDS: Fluticasone Propionate Nasal Spray 16 gm Bottle NASAL SCH (08:44)
[2019-05-29] MEDS: Montelukast Sodium 10 mg Tablet PO SCH (21:26)
[2019-05-30] MEDS: Mometasone/Formoterol 60 PUFF AER INH SCH ×2 (06:05→17:22)
[2019-05-30] MEDS: Ibuprofen 800 MG TAB PO PRN ×2 (06:10→16:47)
[2019-05-30] MEDS: FLUoxetine HCl 10 MG CAP PO SCH (08:57)
[2019-05-30] MEDS: Aspirin 81 mg Enteric Coated Tablet PO SCH ×2 (08:57→21:24)
[2019-05-30] MEDS: Calcium Carbonate + Vit D 1 TAB PO SCH (08:57)
[2019-05-30] MEDS: Furosemide 40 MG TAB PO SCH (08:57)
[2019-05-30] MEDS: Multivit, Therapeutic 1 TAB PO SCH (08:58)
[2019-05-30] MEDS: Fluticasone Propionate Nasal Spray 16 gm Bottle NASAL SCH (08:58)
[2019-05-30] MEDS: HYDROcodone/Acetaminophen 10/325 mg Tablet PO PRN (16:45)
[2019-05-30] MEDS: Montelukast Sodium 10 mg Tablet PO SCH (21:24)
[2019-05-31] MEDS: Ibuprofen 800 MG TAB PO PRN ×3 (00:30→17:01)
[2019-05-31] MEDS: HYDROcodone/Acetaminophen 10/325 mg Tablet PO PRN ×4 (00:30→21:10)
[2019-05-31] MEDS: Mometasone/Formoterol 60 PUFF AER INH SCH ×2 (06:02→18:46)
[2019-05-31] MEDS ORDERED: Furosemide 40 MG TAB PO SCH (07:30)
[2019-05-31] MEDS: Calcium Carbonate + Vit D 1 TAB PO SCH (07:43)
[2019-05-31] MEDS: FLUoxetine HCl 10 MG CAP PO SCH (08:21)
[2019-05-31] MEDS: Aspirin 81 mg Enteric Coated Tablet PO SCH ×2 (08:21→21:09)
[2019-05-31] MEDS: Multivit, Therapeutic 1 TAB PO SCH (08:23)
[2019-05-31] MEDS: Fluticasone Propionate Nasal Spray 16 gm Bottle NASAL SCH (08:32)
[2019-05-31] MEDS: Montelukast Sodium 10 mg Tablet PO SCH (21:09)
[2019-06-01] MEDS: Ibuprofen 800 MG TAB PO PRN ×3 (05:51→20:29)
[2019-06-01] MEDS: HYDROcodone/Acetaminophen 10/325 mg Tablet PO PRN ×3 (05:51→20:32)
[2019-06-01] MEDS: Furosemide 40 MG TAB PO SCH (05:51)
[2019-06-01] MEDS: Mometasone/Formoterol 60 PUFF AER INH SCH ×2 (05:57→18:23)
[2019-06-01] MEDS: Aspirin 81 mg Enteric Coated Tablet PO SCH ×2 (08:14→20:29)
[2019-06-01] MEDS: Multivit, Therapeutic 1 TAB PO SCH (08:15)
[2019-06-01] MEDS: Calcium Carbonate + Vit D 1 TAB PO SCH (08:15)
[2019-06-01] MEDS: FLUoxetine HCl 10 MG CAP PO SCH (08:15)
[2019-06-01] MEDS: Fluticasone Propionate Nasal Spray 16 gm Bottle NASAL SCH (08:16)
[2019-06-01] MEDS: Montelukast Sodium 10 mg Tablet PO SCH (20:29)
[2019-06-02] MEDS: Mometasone/Formoterol 60 PUFF AER INH SCH ×2 (06:58→18:36)
[2019-06-02] MEDS: Furosemide 40 MG TAB PO SCH (06:58)
[2019-06-02] MEDS: Ibuprofen 800 MG TAB PO PRN ×2 (09:00→18:13)
[2019-06-02] MEDS: FLUoxetine HCl 10 MG CAP PO SCH (09:02)
[2019-06-02] MEDS: Calcium Carbonate + Vit D 1 TAB PO SCH (09:02)
[2019-06-02] MEDS: Aspirin 81 mg Enteric Coated Tablet PO SCH ×2 (09:05→21:09)
[2019-06-02] MEDS: Multivit, Therapeutic 1 TAB PO SCH (09:05)
[2019-06-02] MEDS: HYDROcodone/Acetaminophen 10/325 mg Tablet PO PRN ×2 (09:05→18:14)
[2019-06-02] MEDS: Fluticasone Propionate Nasal Spray 16 gm Bottle NASAL SCH (09:07)
[2019-06-02] MEDS: Montelukast Sodium 10 mg Tablet PO SCH (21:09)
[2019-06-03 06:06] VITALS: TEMP 97.7
[2019-06-03] MEDS: Furosemide 40 MG TAB PO SCH (06:21)
[2019-06-03] MEDS: Mometasone/Formoterol 60 PUFF AER INH SCH (06:22)
[2019-06-03] MEDS: HYDROcodone/Acetaminophen 10/325 mg Tablet PO PRN ×2 (06:54→13:11)
[2019-06-03] MEDS: Ibuprofen 800 MG TAB PO PRN (06:56)
[2019-06-03] MEDS: Aspirin 81 mg Enteric Coated Tablet PO SCH (08:51)
[2019-06-03] MEDS: FLUoxetine HCl 10 MG CAP PO SCH (08:54)
[2019-06-03] MEDS: Multivit, Therapeutic 1 TAB PO SCH (08:54)
[2019-06-03] MEDS: Calcium Carbonate + Vit D 1 TAB PO SCH (08:55)
[2019-06-03] MEDS: Fluticasone Propionate Nasal Spray 16 gm Bottle NASAL SCH (08:55)
[2019-06-03 08:58] VITALS: BP 112/54
== END 2019-06-03 14:02 | disposition home or self-care (01) | DRG 561 ==
LOC: BURMED 11:20
PROVIDERS: ADMIT Family Medicine; ATTEND Family Medicine
DX: Z47.1 Aftercare following joint replacement surgery (principal); I48.2 Chronic atrial fibrillation; Z96.651 Presence of right artificial knee joint; J44.9 Chronic obstructive pulmonary disease, unspecified; F32.9 Major depressive disorder, single episode, unspecified; F41.9 Anxiety disorder, unspecified; R26.89 Other abnormalities of gait and mobility; K21.9 Gastro-esophageal reflux disease without esophagitis; E66.9 Obesity, unspecified; Z98.890 Other specified postprocedural states; Z98.49 Cataract extraction status, unspecified eye; Z88.0 Allergy status to penicillin; Z79.82 Long term (current) use of aspirin; Z68.34 Body mass index [BMI] 34.0-34.9, adult
CPT/HCPCS: 94664; J7620

== ENCOUNTER 2019-06-08 20:18 | Emergency (ER) | payer MEDICARE, BC ==
[2019-06-08] MEDS ORDERED: Fentanyl 100 MCG/2 ML VIAL ONE ×2 (20:32→21:32)
[2019-06-08] MEDS ORDERED: Sodium Chloride 0.9% 0 ML ONE (21:00)
[2019-06-08] MEDS ORDERED: cefTRIAXone\\ROCEPHIN 1 GM VIAL ONE (21:00)
[2019-06-08] MEDS ORDERED: Sodium Chloride 0.9% 100 ML ONE (21:04)
--- NOTE | 2019-06-08 21:19 | CT ---
CT OF THE BRAIN WITHOUT CONTRAST: 06/08/19 COMPARISON: Comparison is made with a prior CT of the sinuses dated 07/01/18. The ventricle are normal in size with no shift. No intracranial bleeding or extra-axial hematoma was seen. There is no sign of mass, edema, or stroke. There is nearly complete opacification of the ethmoid sinuses bilaterally and some mucosal thickening in the maxillary sinuses. No air fluid level is seen in the sphenoid sinus. The calvarium appears in tact. The zygomatic arches and nasal bones appear intact. IMPRESSION: 1. No acute intracranial findings. 2. Chronic sinusitis, particularly involving the ethmoid sinuses. While these are almost complet alex opaque, the overall status of the sinuses is actually better than it has been on several prior CT scans. POS: HOME
--- NOTE | 2019-06-08 21:20 | RAD ---
RIGHT KNEE FOUR VIEWS 06/08/19 A total knee arthroplasty is in place. There is no sign of loosening or infection of the hardware. No acute fracture was seen. No large joint effusion was evident. IMPRESSION: No acute findings. POS: HOME
[2019-06-08] MEDS ORDERED: Ketorolac Tromethamine 30 MG/ML VIAL ONE (21:32)
[2019-06-08] MEDS ORDERED: Triple Antibiotic Oint 1 GM Packet ONE (21:52)
== END 2019-06-08 22:20 | disposition home or self-care (01) ==
LOC: BURERS 20:18
DX: S01.111A Laceration without foreign body of right eyelid and periocular area, initial encounter (principal); T81.30XA Disruption of wound, unspecified, initial encounter; S80.01XA Contusion of right knee, initial encounter; I48.91 Unspecified atrial fibrillation; J45.909 Unspecified asthma, uncomplicated; Z87.891 Personal history of nicotine dependence; Z79.82 Long term (current) use of aspirin; W18.30XA Fall on same level, unspecified, initial encounter
CPT/HCPCS: 12002; 12011; 70450; 94760; 96365; 96375; J0696; J1885; J3010; J3490